=== PATIENT | male | born 1980 | race Two or more races ===

== ENCOUNTER 2020-09-22 16:21 | Outpatient (CLI) | payer OTHER | END 2020-09-22 16:22 | disposition home or self-care (01) | LOC: PPH VACUNA 16:21 | DX: Z23 Encounter for immunization (principal) ==

== ENCOUNTER 2020-10-22 08:00 | Outpatient (CLI) | payer OTHER | END 2020-10-22 08:30 | disposition home or self-care (01) | LOC: PPH VACUNA 08:00 | DX: Z23 Encounter for immunization (principal) ==